=== PATIENT | male | born 1945 | race Caucasian/White ===

== ENCOUNTER 2016-10-01 07:02 | Day surgery (SDC) | payer MEDICARE, OTHER ==
[~2016-10-01] VITALS: Ht 188 cm; Wt 106.7 kg
--- NOTE | ~2016-10-01 | OR ---
PATIENT'S NAME: BOZENA KRUGER [facility] AGE: 71 Y [address] ROOM: [place] [address] LOCATION: [facility] [place] ADMIT DATE: 10/01/2016 OR/Procedure Report DISCHARGE DATE: FAMILY PHYSICIAN: Lamont Ramos MD ATTENDING PHYSICIAN: Papito Corral V SURGEON: Papito Corral MD ICT SECURITY SPECIALIST: DATE OF PROCEDURE: 10/01/2016 PREOPERATIVE DIAGNOSIS: Left tail, parotid mass. POSTOPERATIVE DIAGNOSIS: Left tail, parotid mass. OPERATION/PROCEDURE: Left superficial parotidectomy with facial nerve dissection. ANESTHESIA: General endotracheal anesthesia. ESTIMATED BLOOD LOSS: Minimal. COMPLICATIONS: None. 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 DESCRIPTION OF PROCEDURE: The patient was taken to the operating room, laid in supine position with general endotracheal anesthesia. The head was rotated to the right. Left face was approached. Proposed modified Yosvany incision was marked, infiltrated with 1% lidocaine with epinephrine solution. The face was prepped and draped in usual sterile fashion. A modified Yosvany skin incision was then performed using a #15 blade. Subcutaneous tissues were divided using a #15 blade. The skin was elevated anteriorly in the superficial musculoaponeurotic fascia. Blunt dissection was then performed along the tragal pointer. The patient was noted to have severe fibrosis along the tragal pointer extending down, overlying the sternocleidomastoid muscle. This was divided using the #15 blade. Hemostasis obtained with a combination Bovie electrocautery and 3-0 silk suture ligature. The parotid was able to be reflected anterior to the sternocleidomastoid muscle. This was then followed inferiorly. The parotid tissue was fibrotic, scarred to the sternocleidomastoid muscle. This was divided, clamped, suture ligated using 3- 0 silk suture. Blunt dissection was then able to be performed along the tragal pointer. The facial nerve was identified. This was split into 2 separate branches with the marginal mandibular branch, cervical branch, and some contribution to the buccal extending inferiorly. This was followed anteriorly. Parotid tissue was clamped and suture ligated superficial to the PATIENT'S NAME: BOZENA KRUGER [facility] AGE: 71 Y [address] ROOM: [place] [id number] LOCATION: [facility] [place] ADMIT DATE: 10/01/2016 OR/Procedure Report DISCHARGE DATE: FAMILY PHYSICIAN: Lamont Ramos MD ATTENDING PHYSICIAN: Papito Corral V marginal mandibular buccal branches. This was reflected anteriorly. The frontal zygomatic branches of the facial nerve were then followed superiorly. The parotid tissue was clamped and suture ligated. There was a deep branch extending to the zygomatic and superior portion of the buccal branch, extending deep to the parotid tissue. The large pleomorphic adenoma between the marginal mandibular and buccal branches of facial nerve adventitia was divided, clamped, and suture ligated. This was reflected off the masseter muscle. This was followed superiorly. The parotid tissue between the buccal and zygomatic as well as frontal branch of the facial nerve were clamped, suture ligated using 3-0 silk sutures. The superficial portion of the parotid was removed in total. The face was irrigated with copious amounts of bacitracin solution. The facial nerve was stimulated with good response. The drain was placed through a separate inferior stab incision secured using 2- 0 silk suture. The subcutaneous tissues were approximated with interrupted 3- 0 Vicryl. Skin closure performed with 5-0 Ethilon sutures. The patient tolerated the procedure well, was aroused, extubated, and discharged from the operating room to recovery room in satisfactory condition. Frozen section pathology revealed pleomorphic adenoma. PAPITO CORRAL MD TVC/modl /[id number] d: 10/01/16 1622 t: 10/11/16 1308, OPERATIVE SUMMARY
[~2016-10-01 07:02] MED LIST: ACTOS 15 MG15 MG PO; ALDACTONE25 MG PO; CITALOPRAM HBR10 MG PO; CORDARONE,PACE200 MG PO; LASIX40 MG PO; LIPITOR40 MG PO; LOPRESSOR100 MG PO; NITROSTAT0.4 MG SL; PAIN RELIEVER500 M1 PO; PLAVIX75 MG PO; PRESERVISION A1 EACH PO; PRINIVIL OR ZES10 MG PO; PROTONIX40 MG PO; SYNTHROID25 MCG PO; THERA-VITE W/ B1 TAB PO; ULTRAM50 MG PO; XARELTO20 MG PO
[2016-10-01 07:38] LABS: INR - (THERAPEUTIC) 1.09 (0.92-1.07); PROTIME 11.5 SECONDS (9.8-11.4)
[2016-10-02] MEDS ORDERED: NORCO 5-325 TA1 EACH PO (08:17)
[2016-10-05] MEDS ORDERED: KEFLEX500 MG PO (10:15)
== END 2016-10-02 10:10 | disposition disaster alternative care site (69) ==
LOC: GMSU 07:02 → GSDC 07:02 → GPOC 15:00 → GMSU 15:53 → GSDC 10-02 10:10
PROVIDERS: Otolaryngology
PROC: 0CT90ZZ Resection of Left Parotid Gland, Open Approach (ICD-10-PCS; principal; 2016-10-01)
PROC: 00BM0ZZ Excision of Facial Nerve, Open Approach (ICD-10-PCS; 2016-10-01)
DX: D11.0 Benign neoplasm of parotid gland (principal); I48.0 Paroxysmal atrial fibrillation; E03.9 Hypothyroidism, unspecified; I25.10 Atherosclerotic heart disease of native coronary artery without angina pectoris; I11.0 Hypertensive heart disease with heart failure; I50.31 Acute diastolic (congestive) heart failure; M19.90 Unspecified osteoarthritis, unspecified site; R16.1 Splenomegaly, not elsewhere classified; E11.9 Type 2 diabetes mellitus without complications; E78.5 Hyperlipidemia, unspecified; K21.9 Gastro-esophageal reflux disease without esophagitis; Z86.010 Personal history of colon polyps; Z95.5 Presence of coronary angioplasty implant and graft; Z98.41 Cataract extraction status, right eye; Z98.42 Cataract extraction status, left eye; Z96.652 Presence of left artificial knee joint; Z98.890 Other specified postprocedural states
CPT/HCPCS: A9270; J2001; J7030; J7120

== ENCOUNTER → 2016-10-05 | Day surgery (SDC) | payer MEDICARE, OTHER ==
[~2016-10-05] VITALS: Ht 188 cm; Wt 106.3 kg
[~2016-10-05] MED LIST changes: +KEFLEX500 MG PO; +NORCO 5-325 TA1 EACH PO
--- NOTE | ~2016-10-05 | OR ---
PATIENT'S NAME: BOZENA KRUGER [facility] AGE: 71 Y [address] ROOM: [place] [address] LOC[place]: [facility] [place] ADMIT DATE: 10/05/2016 OR/Procedure Report DISCHARGE DATE: FAMILY PHYSICIAN: Lamont Ramos MD ATTENDING PHYSICIAN: Papito Corral V SURGEON: Papito Corral MD DECISION ANALYST: DATE OF PROCEDURE: 10/05/2016 PREOPERATIVE DIAGNOSIS: Left postsurgical facial hematoma. POSTOPERATIVE DIAGNOSIS: Left postsurgical facial hematoma. OPERATION/PROCEDURE: I and D of the left facial hematoma. ANESTHESIA: General endotracheal anesthesia. ESTIMATED BLOOD LOSS: Minimal. COMPLICATIONS: None. FINDINGS: The patient had enlarged left facial hematoma with significant associated soft tissue swelling and edema. BRIEF HISTORY: The patient is a 71-year-old gentleman with history of a left parotid mass status post left superficial parotidectomy performed this past Saturday. The patient restarted his anticoagulant on 10/03/2016, and woke up on morning with acute left-sided facial swelling associated with pain. He was attempted aspiration in the office, it was unsuccessful. The patient scheduled for I and D of the left facial hematoma. DESCRIPTION OF PROCEDURE: The patient was taken to the operating room, laid in supine position with general endotracheal anesthesia. The table was rotated to the right. The left face was approached. The left face was prepped and draped in the usual sterile fashion using Betadine solution. Sutures were removed along the inferior aspect of the incision extending up to the earlobe. A 6-0 Ethilon suture was then tied at the level of the earlobe. Vicryl sutures were removed. Hematoma was partially evacuated. Wound was irrigated with copious amounts of bacitracin solution. The patient was noted to have significant soft tissue edema and swelling of his anterior as well as posterior skin flaps. A drain was placed through a separate inferior stab incision, secured using 2-0 silk suture. Repeated irrigation was performed evacuating bulk of hematoma. There was significant fibrogenic change. Subcutaneous tissues were then approximated using interrupted 4-0 Vicryl suture and skin closure performed with interrupted 5-0 Ethilon suture. The PATIENT'S NAME: BOZENA KRUGER [facility] AGE: 71 Y [address] ROOM: [place] [address] LOCATION: [facility] [place] ADMIT DATE: 10/05/2016 OR/Procedure Report DISCHARGE DATE: FAMILY PHYSICIAN: Lamont Ramos MD ATTENDING PHYSICIAN: Papito Corral V patient tolerated the procedure well. Neosporin ointment was applied. The patient was aroused, extubated, and discharged from the operating room to the recovery room in satisfactory condition. PAPITO CORRAL MD TVC/modl /[id number] d: 10/05/166 t: 10/11/16 1308, OPERATIVE SUMMARY
== END | disposition disaster alternative care site (69) ==
LOC: GSDC 10:00 → GPOC 10:00 → GSDC 10:22
PROC: 0H91X0Z Drainage of Face Skin with Drainage Device, External Approach (ICD-10-PCS; principal; 2016-10-05)
DX: K91.870 Postprocedural hematoma of a digestive system organ or structure following a digestive system procedure (principal); M19.90 Unspecified osteoarthritis, unspecified site; K21.9 Gastro-esophageal reflux disease without esophagitis; E78.00 Pure hypercholesterolemia, unspecified; I25.10 Atherosclerotic heart disease of native coronary artery without angina pectoris; G47.30 Sleep apnea, unspecified; E03.9 Hypothyroidism, unspecified; E04.9 Nontoxic goiter, unspecified; E78.5 Hyperlipidemia, unspecified; I48.0 Paroxysmal atrial fibrillation; I10 Essential (primary) hypertension; I50.9 Heart failure, unspecified; D61.818 Other pancytopenia; E11.65 Type 2 diabetes mellitus with hyperglycemia; Z86.010 Personal history of colon polyps; Z87.891 Personal history of nicotine dependence; Z95.1 Presence of aortocoronary bypass graft; Z98.890 Other specified postprocedural states; Z98.41 Cataract extraction status, right eye; Z98.42 Cataract extraction status, left eye; Z96.652 Presence of left artificial knee joint; Z79.899 Other long term (current) drug therapy; Z91.041 Radiographic dye allergy status; Z91.030 Bee allergy status; Z91.013 Allergy to seafood
CPT/HCPCS: J2001; J7030

== ENCOUNTER → 2016-12-12 | Outpatient (CLI) | payer MEDICARE, OTHER | END | disposition disaster alternative care site (69) | LOC: GRAD 08:40 | DX: E04.2 Nontoxic multinodular goiter (principal) ==